=== PATIENT | female | born 2000 | race African-American/Black ===

== ENCOUNTER 2018-07-09 11:37 | Emergency (ER) | payer OTHER, SELFPAY ==
[2018-07-09] VITALS (8 sets, daily range): BP systolic 94–138; BP diastolic 58–94; PULSE 88–123; RESP 14–20; TEMP 36.6; O2SAT 98–100; BMI 24.7
--- NOTE | 2018-07-09 13:48 | ED.VIS.GEN ---
History of Present Illness Chief Complaint: Abscess Informant: Patient Onset: Days Context: Sudden Onset Timing: Continuous Quality: Pain left buttocks Location: Left superior buttocks near the gluteal crease Current Severity: Mild Maximum Severity: Severe Worsened by: Pressure Relieved by: Nothing Associated Symptoms: No associated symptoms Narrative: Patient is a 18-year-old who presents with chief complaint of left buttocks pain. She states when she went home from college she had an abscess drained. She was placed on antibiotics. She took the antibiotics till gone. She states the pain recurred and there is drainage. She denies fever, chills night sweats. She is not diabetic. She is not have history of rheumatic fever, heart murmur, SPE, IV drug use or being immune suppressed. She is on control pills. She last ate and drank at 11 AM. She denies allergy to soy products or egg products. Prior similar symptoms: Yes Recent Illness/Hospitalization: Yes - Past Medical History (1) Left buttock abscess Status: Acute Past Medical History - Allergies and Home Meds Allergies/Adverse Reactions: Allergies No Known Allergies Allergy (Verified 02/03/17 00:55) Primary Care Physician: [facility] Doctor,Out of [NON-STAFF] - Prior records reviewed: No Past Medical History: None Surgical History: - - I&D left buttocks abscess Lives: With Family Smoking Status: Never smoker Drugs: None Review of Systems General: Denies: Chills, Fever, Malaise, Subjective, Sweats, Weight loss ENT: Denies: Rhinorrhea, Sore throat Cardiovascular: Denies: Chest pain, Palpitations, Heart racing Respiratory: Denies: Dyspnea, Cough, Dyspnea on exertion Gastrointestinal: Denies: Abdominal pain, Nausea, Vomiting, Diarrhea, Melena, Hematochezia Genitourinary: Denies: Dysuria, Hematuria, Frequency Musculoskeletal: Denies: Myalgias, Arthralgias, Back pain, Extremity Pain Skin: Reports: Abscess. Denies: Rash, Abrasions, Wounds, -, - Neurological: Denies: Weakness, Parasthesia Hematologic: Denies: Easy bruising, Easy bleeding Allergy: Denies: Uticaria Physical Exam Vital Signs/Narrative: Vital Signs Temp Pulse Resp BP Pulse Ox 07/09/18 11:38 97.8 F 123 H 14 138/63 H 98 Inital Vital Signs reviewed: Yes - 1 g General: Well nourished, Well developed, No Acute Distress Head: Normocephalic, Atraumatic Eyes: Perrl, EOMI. Negative for: Pale conjunctiva, Scleral icterus ENT: Moist mucous membranes, No rhinorrhea Neck: Supple, Nontender Cardiovascular: Regular rate, Regular rhythm, No murmurs, Normal S1, Normal S2 Respiratory: No distress, CTA bilaterally, Chest nontender Abdomen: Soft, Nontender, Nondistended, Normal bowel sounds Rectal: - - There is an abscess superior left buttocks near the gluteal crease. This does not represent a pilonidal abscess. Back: Nontender, Normal Inspection Extremities: Nontender, No edema Skin: Normal color, No rash Neurological: Alert, Oriented x3, Cranial nerves II-XII grossly intact, Normal Strength, Normal Sensation Psychological: Normal affect, Normal Mood Diagnostic/Tx/Re-eval - Medical Decision Making There is a subcutaneous left buttocks abscess. Patient will undergo procedural sedation with propofol. She was explained risk benefits. She was given obtain as questions. None were asked. Since patient has no past medical history laboratory tests were not obtained. Once patient has been consented and nurses available will perform I&D of left buttocks abscess using propofol for deep sedation. Procedures Procedure(s): 1. Deep sedation using propofol. Total time 9 minutes. 2. Patient has a pilonidal abscess. She formed a fistula and was draining from the left buttocks area. The other area in question is from prior incision site. There is a sinus tract noted. Once patient is awake will inform her why this reoccurred and reason to follow-up with surgeon. Patient was prepped draped sterile manner. There was no size 1% lidocaine. An incision was made using a 10 blade. A 2.5 cm incision was made. Blunt dissection was undertaken with free flow of bloody brown purulent fluid. Cavity was irrigated. Wick was placed to facilitate further drainage. ED Disposition - Plan for ED Patient: Disposition: Home or Assisted Living Diagnosis: Pilonidal cyst with abscess Instructions: ED Cyst Pilonidal Infected IandD Prescriptions: Hydrocodone Bitart/Apap 5-325 [[place] 5MG-325MG] 1 tab PO Q6H PRN PRN 3 Days #10 tab PRN Reason: Pain Amox/Clavulanate Tablet [Augmentin Tablet] 875 mg PO Q12H #14 tab Referrals: [facility] Doctor,Out of [NON-STAFF] - 2 Days for wound check Additional Instructions: You will need to follow-up with surgeon you soft through the [facility]. You have a pilonidal cyst that became infected. Definitive treatment is excision of the area by a general surgeon.
--- NOTE | 2018-07-09 13:52 | ED.DCSUM_ITS ---
History of Present Illness Chief Complaint: Abscess Informant: Patient Onset: Days Context: Sudden Onset Timing: Continuous Quality: Pain left buttocks Location: Left superior buttocks near the gluteal crease Current Severity: Mild Maximum Severity: Severe Worsened by: Pressure Relieved by: Nothing Associated Symptoms: No associated symptoms Narrative: Patient is a 18-year-old who presents with chief complaint of left buttocks pain. She states when she went home from college she had an abscess drained. She was placed on antibiotics. She took the antibiotics till gone. She states the pain recurred and there is drainage. She denies fever, chills night sweats. She is not diabetic. She is not have history of rheumatic fever, heart murmur, SPE, IV drug use or being immune suppressed. She is on control pills. She last ate and drank at 11 AM. She denies allergy to soy products or egg products. Prior similar symptoms: Yes Recent Illness/Hospitalization: Yes - Past Medical History (1) Left buttock abscess Status: Acute Past Medical History - Allergies and Home Meds Allergies/Adverse Reactions: Allergies No Known Allergies Allergy (Verified 02/03/17 00:55) Primary Care Physician: [facility] Doctor,Out of [NON-STAFF] - Prior records reviewed: No Past Medical History: None Surgical History: - - I&D left buttocks abscess Lives: With Family Smoking Status: Never smoker Drugs: None Review of Systems General: Denies: Chills, Fever, Malaise, Subjective, Sweats, Weight loss ENT: Denies: Rhinorrhea, Sore throat Cardiovascular: Denies: Chest pain, Palpitations, Heart racing Respiratory: Denies: Dyspnea, Cough, Dyspnea on exertion Gastrointestinal: Denies: Abdominal pain, Nausea, Vomiting, Diarrhea, Melena, Hematochezia Genitourinary: Denies: Dysuria, Hematuria, Frequency Musculoskeletal: Denies: Myalgias, Arthralgias, Back pain, Extremity Pain Skin: Reports: Abscess. Denies: Rash, Abrasions, Wounds, -, - Neurological: Denies: Weakness, Parasthesia Hematologic: Denies: Easy bruising, Easy bleeding Allergy: Denies: Uticaria Physical Exam Vital Signs/Narrative: Vital Signs Temp Pulse Resp BP Pulse Ox 07/09/18 11:38 97.8 F 123 H 14 138/63 H 98 Inital Vital Signs reviewed: Yes - 1 g General: Well nourished, Well developed, No Acute Distress Head: Normocephalic, Atraumatic Eyes: Perrl, EOMI. Negative for: Pale conjunctiva, Scleral icterus ENT: Moist mucous membranes, No rhinorrhea Neck: Supple, Nontender Cardiovascular: Regular rate, Regular rhythm, No murmurs, Normal S1, Normal S2 Respiratory: No distress, CTA bilaterally, Chest nontender Abdomen: Soft, Nontender, Nondistended, Normal bowel sounds Rectal: - - There is an abscess superior left buttocks near the gluteal crease. This does not represent a pilonidal abscess. Back: Nontender, Normal Inspection Extremities: Nontender, No edema Skin: Normal color, No rash Neurological: Alert, Oriented x3, Cranial nerves II-XII grossly intact, Normal Strength, Normal Sensation Psychological: Normal affect, Normal Mood Diagnostic/Tx/Re-eval - Medical Decision Making There is a subcutaneous left buttocks abscess. Patient will undergo procedural sedation with propofol. She was explained risk benefits. She was given obtain as questions. None were asked. Since patient has no past medical history laboratory tests were not obtained. Once patient has been consented and nurses available will perform I&D of left buttocks abscess using propofol for deep sedation. Procedures Procedure(s): 1. Deep sedation using propofol. Total time 9 minutes. 2. Patient has a pilonidal abscess. She formed a fistula and was draining from the left buttocks area. The other area in question is from prior incision site. There is a sinus tract noted. Once patient is awake will inform her why this reoccurred and reason to follow-up with surgeon. Patient was prepped draped sterile manner. There was no size 1% lidocaine. An incision was made using a 10 blade. A 2.5 cm incision was made. Blunt dissection was undertaken with free flow of bloody brown purulent fluid. Cavity was irrigated. Wick was placed to facilitate further drainage. ED Disposition - Plan for ED Patient: Disposition: Home or Assisted Living Diagnosis: Pilonidal cyst with abscess Instructions: ED Cyst Pilonidal Infected IandD Prescriptions: Hydrocodone Bitart/Apap 5-325 [[place] 5MG-325MG] 1 tab PO Q6H PRN PRN 3 Days #10 tab PRN Reason: Pain Amox/Clavulanate Tablet [Augmentin Tablet] 875 mg PO Q12H #14 tab Referrals: [facility] Doctor,Out of [NON-STAFF] - 2 Days for wound check Additional Instructions: You will need to follow-up with surgeon you soft through the [facility]. You have a pilonidal cyst that became infected. Definitive treatment is excision of the area by a general surgeon.
[2018-07-09] MEDS: Propofol 200 MG/20 ML Vial IV BOLUS (16:55)
== END 2018-07-09 18:25 | disposition home or self-care (01) ==
PROVIDERS: Emergency Provider Emergency Medicine
DX: L05.01 Pilonidal cyst with abscess (principal); Z79.3 Long term (current) use of hormonal contraceptives
CPT/HCPCS: 10060; 99285; A4216